=== PATIENT | female | born 1985 | race Caucasian/White ===

== ENCOUNTER 2019-06-13 12:17 | Emergency (ER) | payer OTHER ==
[~2019-06-13] VITALS: Ht 162.6 cm; Wt 83.0 kg
[~2019-06-13 12:17] MED LIST: HYDROCODONE-AP1 EAC6 PO; IBUPROFEN 800800 M1 PO
[2019-06-13 13:06] LABS: ABSOLUTE BASOPHILS 0.1 thou/uL (0.0-0.2); ABSOLUTE EOSINOPHILS 0.1 thou/uL (0.0-0.7); ABSOLUTE LYMPHOCYTES 3.2 thou/uL (0.8-5.3); ABSOLUTE MONOCYTES 0.7 thou/uL (0.0-1.2); ABSOLUTE NEUTROPHILS 4.6 thou/uL (1.6-8.1); BASOPHILS 1.3 %; EOSINOPHILS 1.5 %; HEMATOCRIT 39.6 % (37.0-47.0); HEMOGLOBIN 13.8 gm/dL (12.0-15.0); LYMPHOCYTES 36.7 %; MCH 28.6 pg (26.0-34.0); MCHC 34.9 g/dL (28.0-37.0); MONOCYTES 7.7 %; MPV 6.7 fl. (7.2-11.1); NUCLEATED RBCS 0 /100WBC; PLATELET COUNT* 364 thou/uL (150-400); POLYS 52.8 %; RBC 4.84 mil/uL (4.20-5.00); RDW-CV 13.1 % (10.5-14.5); WBC 8.8 thou/uL (4.0-11.0)
[2019-06-13 13:13] LABS: CALCIUM 9.6 mg/dL (8.5-10.1); CREATININE 0.6 mg/dL (0.6-1.3); POTASSIUM 4.1 mmol/L (3.5-5.1)
[2019-06-13] MEDS ORDERED: AMOXICILLIN 50500 MG PO (15:35)
[2019-06-13 15:59] VITALS: BP 135/75
== END 2019-06-13 16:00 | disposition home or self-care (01) ==
LOC: M.ERS 12:17
PROVIDERS: Nurse Practitioner Family
DX: R59.0 Localized enlarged lymph nodes (principal); Z98.890 Other specified postprocedural states

== ENCOUNTER 2019-09-23 12:11 | Emergency (ER) | payer OTHER ==
[~2019-09-23] VITALS: Ht 162.6 cm; Wt 79.4 kg
[~2019-09-23 12:11] MED LIST changes: +AMOXICILLIN 50500 MG PO
[2019-09-23 13:02] LABS: ABSOLUTE EOSINOPHILS 0.1 thou/uL (0.0-0.7); ABSOLUTE LYMPHOCYTES 2.7 thou/uL (0.8-5.3); ABSOLUTE MONOCYTES 0.7 thou/uL (0.0-1.2); ABSOLUTE NEUTROPHILS 5.7 thou/uL (1.6-8.1); BASOPHILS 0.2 %; EOSINOPHILS 1.1 %; HEMATOCRIT 39.5 % (37.0-47.0); HEMOGLOBIN 13.7 gm/dL (12.0-15.0); MCH 28.5 pg (26.0-34.0); MCHC 34.6 g/dL (28.0-37.0); MCV 82.4 fL (80.0-100.0); MPV 6.6 fl. (7.2-11.1); NUCLEATED RBCS 0 /100WBC; PLATELET COUNT* 385 thou/uL (150-400); POLYS 61.7 %; RBC 4.79 mil/uL (4.20-5.00); RDW-CV 13.2 % (10.5-14.5); WBC 9.2 thou/uL (4.0-11.0)
[2019-09-23 13:12] LABS: CALCIUM 8.9 mg/dL (8.5-10.1); CREATININE 0.7 mg/dL (0.6-1.3); MAGNESIUM 1.6 mg/dL (1.8-2.4); POTASSIUM 3.8 mmol/L (3.5-5.1)
[2019-09-23] MEDS ORDERED: MAGNESIUM400 MG PO (13:37)
[2019-09-23 15:00] LABS: URINE BILIRUBIN NEGATIVE (Negative); URINE BLOOD NEGATIVE (Negative); URINE CLARITY CLEAR; URINE COLOR YELLOW; URINE GLUCOSE-RANDOM NEGATIVE (Negative); URINE KETONES NEGATIVE (Negative); URINE LEUKOCYTES NEGATIVE (Negative); URINE NITRITE NEGATIVE (Negative); URINE PROTEIN NEGATIVE (Negative); URINE UROBILINOGEN 0.2 E.U./dl (0.2-1.0)
[2019-09-23 15:20] VITALS: BP 108/68
--- NOTE | 2019-09-24 13:12 | EKG ---
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 09/24/19 1311 1312 131 Aldair Rome MD, [facility] /EPI
== END 2019-09-23 15:20 | disposition home or self-care (01) ==
LOC: M.ERS 12:11
PROVIDERS: Physician Assistant
DX: E83.42 Hypomagnesemia (principal); R20.2 Paresthesia of skin; R42 Dizziness and giddiness; Z98.890 Other specified postprocedural states

== ENCOUNTER → 2020-03-27 | Outpatient (CLI) | payer OTHER ==
[~2020-03-27] MED LIST changes: +MAGNESIUM400 MG PO
--- NOTE | 2020-03-27 14:09 | EXE ---
[place] [address] STRESS ECHOCARDIOGRAM Name: BRITTNI PARADA Room: [facility]#: [id number] Admission: 03/27/20 Attend Phys: Jose Cancino DO Discharge: Date of : 89 Date of Service: 03/27/20 1409 Report #: [id number] THIS REPORT FOR: cc: Jose Cancino Adam J DO Holkins, John M. MD [facility] ~ APPROVED REPORT Study performed: 03/27/2020 11:25:44 Exam: Stress Echocardiogram Indication: Syncope Patient Location: Out-Patient Stress Nurse: Carlee Strauss RN Supervising Physician: Aldair Rome MD Ht: 5 ft 4 in HR: 115 bpm BP: 128/84 mmHg Medical History Cardiac Risk Factors: FHX of CAD Procedure The patient underwent an Exercise Stress Test using the Donald Protocol. Blood pressure, heart rate, and EKG were monitored. An Echocardiogram was performed by highway technician in four stages in quad fashion. At peak stress, four selected images were obtained and placed side by side with resting images for comparison. Stress Test Details Stress Test: Exercise stress testing was performed using a Donald protocol. HR Resting HR: 115 bpm Max Heart Rate (APMHR): 188 bpm Max HR Achieved: 188 bpm Target HR (85% APMHR): 159 bpm % of APMHR: 100 Recovery HR: 119 bpm HR response to stress: Normal HR response to stress BP Resting BP: 128/84 mmHg Max BP: 165/82 mmHg Recovery BP: 127/80 [place] [address] STRESS ECHOCARDIOGRAM Name: BRITTNI PARADA Room: [facility]#: [id number] Admission: 03/27/20 Attend Phys: Jose Cancino DO Discharge: Date of : 89 Date of Service: 03/27/20 1409 Report #: [id number] BP response to stress: Normal blood pressure response to stress. ECG Resting ECG: sinus rhythm, minor IVCD right type Stress ECG: no ischemic st-t changes Arrhythmia: no arrhtyhmias noted Recovery ECG: minor nonspecific st-t changes noted Clinical Reason for Termination: Completed protocol, Maximal effort Exercise duration: 9 min 01 sec Highest Stage Achieved: Stage 3: 3.4 mph at 14% grade. Exercise capacity: 10.16 METs Pre-Stress Echo The resting Echocardiogram showed normal left ventricular contractility with an estimated Ejection Fraction of about 60-65%. Normal wall motion in all segments on baseline images. Post-Stress Echo The stress Echocardiogram showed normal left ventricular contractility with an estimated Ejection Fraction of about >70%. Normal augmentation of wall motion in all segments on post stress images. Conclusion Clinical Response: Non-ischemic Exercise Capacity: Average Stress ECG Response: Non-ischemic Stress Echo Images: Non-ischemic Other Information Study Quality: Good <ELECTRONICALLY SIGNED> By: Alexi Phillips MD, FACC 03/27/201408 08 08 Alexi Phillips MD, FACC /INF
== END ==
LOC: M.CRD 10:38
PROVIDERS: ATTEND Family Medicine
DX: G47.33 Obstructive sleep apnea (adult) (pediatric) (principal); R55 Syncope and collapse

== ENCOUNTER 2020-04-20 20:01 | Emergency (ER) | payer OTHER ==
[~2020-04-20] VITALS: Ht 162.6 cm; Wt 81.7 kg
[2020-04-20] MEDS ORDERED: ZANAFLEX2 M1 PO (20:11)
[2020-04-20 20:40] VITALS: BP 138/80
--- NOTE | 2020-04-21 10:18 | EKG ---
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 04/21/20 1018 09 09 Aldair Rome MD, [facility] /EPI
== END 2020-04-20 20:40 | disposition home or self-care (01) ==
LOC: M.ERS 20:01
DX: F41.9 Anxiety disorder, unspecified (principal); M43.6 Torticollis; Z98.890 Other specified postprocedural states

== ENCOUNTER → 2020-05-07 | Outpatient (CLI) | payer OTHER ==
[~2020-05-07] MED LIST changes: +ZANAFLEX2 M1 PO
== END ==
LOC: M.MRI 07:26
PROVIDERS: ATTEND Family Medicine
DX: M54.2 Cervicalgia (principal)

== ENCOUNTER 2020-12-27 17:38 | Emergency (ER) | payer OTHER ==
[~2020-12-27] VITALS: Ht 162.6 cm; Wt 63.5 kg
[2020-12-27 19:01] LABS: ABSOLUTE BASOPHILS 0.1 thou/uL (0.0-0.2); ABSOLUTE EOSINOPHILS 0.2 thou/uL (0.0-0.7); ABSOLUTE MONOCYTES 0.6 thou/uL (0.0-1.2); ABSOLUTE NEUTROPHILS 3.8 thou/uL (1.6-8.1); BASOPHILS 0.8 %; HEMATOCRIT 39.5 % (37.0-47.0); LYMPHOCYTES 39.6 %; MCH 27.1 pg (26.0-34.0); MCHC 32.9 g/dL (28.0-37.0); MCV 82.4 fL (80.0-100.0); MONOCYTES 7.6 %; NUCLEATED RBCS 0 /100WBC; PLATELET COUNT* 306 thou/uL (150-400); RDW-CV 13.6 % (10.5-14.5); WBC 7.6 thou/uL (4.0-11.0)
[2020-12-27 19:05] LABS: CALCIUM 9.1 mg/dL (8.5-10.1); CREATININE 0.7 mg/dL (0.6-1.3); POTASSIUM 3.9 mmol/L (3.5-5.1)
[2020-12-27 19:16] LABS: TOTAL BILIRUBIN 0.6 mg/dL (<0.1-1.0); TOTAL PROTEIN 8.1 g/dL (6.4-8.2)
[2020-12-27] MEDS ORDERED: AMOXICILLIN 50500 MG PO (21:10)
[2020-12-27 21:24] VITALS: BP 120/65
--- NOTE | 2020-12-28 11:08 | EKG ---
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
== END 2020-12-27 21:24 | disposition home or self-care (01) ==
LOC: M.ERS 17:38
PROVIDERS: Nurse Practitioner Family
DX: R59.1 Generalized enlarged lymph nodes (principal); K21.9 Gastro-esophageal reflux disease without esophagitis; Z98.890 Other specified postprocedural states

== ENCOUNTER 2021-02-17 14:42 | Emergency (ER) | payer OTHER ==
[~2021-02-17] VITALS: Ht 162.6 cm; Wt 65.8 kg
[2021-02-17 15:22] LABS: ABSOLUTE BASOPHILS 0.1 thou/uL (0.0-0.2); ABSOLUTE LYMPHOCYTES 1.7 thou/uL (0.8-5.3); ABSOLUTE MONOCYTES 0.8 thou/uL (0.0-1.2); ABSOLUTE NEUTROPHILS 3.6 thou/uL (1.6-8.1); EOSINOPHILS 0.6 %; HEMOGLOBIN 12.7 gm/dL (12.0-15.0); LYMPHOCYTES 28.1 %; MCH 28.2 pg (26.0-34.0); MCHC 34.2 g/dL (28.0-37.0); MCV 82.5 fL (80.0-100.0); MONOCYTES 12.4 %; MPV 6.6 fl. (7.2-11.1); NUCLEATED RBCS 0 /100WBC; PLATELET COUNT* 244 thou/uL (150-400); POLYS 57.9 %; RBC 4.49 mil/uL (4.20-5.00); RDW-CV 13.3 % (10.5-14.5); WBC 6.2 thou/uL (4.0-11.0)
[2021-02-17 15:40] LABS: ALBUMIN 3.7 g/dL (3.4-5.0); CALCIUM 8.7 mg/dL (8.5-10.1); CREATININE 0.7 mg/dL (0.6-1.3); POTASSIUM 3.7 mmol/L (3.5-5.1); TOTAL BILIRUBIN 0.4 mg/dL (<0.1-1.0); TOTAL PROTEIN 8.1 g/dL (6.4-8.2)
--- NOTE | 2021-02-17 16:21 | EKG ---
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
[2021-02-17] MEDS ORDERED: VENTOLIN HFA 1818 GM INH (16:39)
[2021-02-17] MEDS ORDERED: ZOFRAN ODT4 MG PO (16:39)
[2021-02-17 17:18] VITALS: BP 124/70
== END 2021-02-17 17:18 | disposition home or self-care (01) ==
LOC: M.ERS 14:42
PROVIDERS: Nurse Practitioner Family
DX: U07.1 COVID-19 (principal); R55 Syncope and collapse; R19.7 Diarrhea, unspecified; K21.9 Gastro-esophageal reflux disease without esophagitis; Z98.890 Other specified postprocedural states

== ENCOUNTER → 2021-02-21 | Outpatient (CLI) | payer OTHER ==
[~2021-02-21] MED LIST changes: +VENTOLIN HFA 1818 GM INH; +ZOFRAN ODT4 MG PO
[2021-02-21 15:18] LABS: NT-PRO BRAIN NAT PEPTIDE 49 pg/mL (<300)
== END ==
LOC: M.LAB 14:28
DX: R00.2 Palpitations (principal); U07.1 COVID-19